=== PATIENT | male | born 1995 | race African-American/Black ===

== ENCOUNTER 2018-08-20 13:56 | Emergency (ER) | payer MEDICAID, OTHER ==
[~2018-08-20] VITALS: Ht 180.3 cm; Wt 71.7 kg
[2018-08-20 14:33] LABS: Urine Bacteria NONE SEEN /hpf (None Seen); Urine Blood Negative /uL (Negative); Urine Mucus FEW (None Seen); Urine Specific Gravity 1.024 (1.001-1.035); Urine WBC 42 /hpf (0 - 3)
[2018-08-20 14:50] LABS: Basophils # (auto) 0 uL; Basophils % (auto) 0.2 % (0.0-2.0); Eosinophils # (auto) 0 uL; Eosinophils % (auto) 1.2 % (0.0-7.0); Hematocrit 43.8 % (41.0-53.0); Hemoglobin 15.5 g/dL (13.5-17.5); Lymphocytes # (auto) 1.6 uL; Mean Corpuscular Hemoglobin 28.9 pg (28.0-32.0); Mean Corpuscular Hgb Conc. 35.3 g/dL (32.0-36.0); Mean Corpuscular Volume 81.8 fL (80.0-100.0); Monocytes # (auto) 0.5 uL; Monocytes % (auto) 12.4 % (0.0-12.0); Neutrophils # (auto) 1.6 uL; Neutrophils % (auto) 43.2 % (37.0-80.0); Nucleated Red Blood Cells % 0.2 %; Platelet Count (auto) 307 10^3/uL (140-450); Red Blood Cells 5.36 10^6/uL (4.5-5.90); Red Cell Distribution Width 13.5 % (11.8-14.3); White Blood Cell 3.8 10^3/uL (4.4-10.8)
[2018-08-20] MEDS ORDERED: PANTOPRAZOLE 40 MG/10 ML VIAL IV STA (15:05)
[2018-08-20] MEDS ORDERED: SODIUM CHLORIDE 0.9% 1,000 ML IVB ONE (15:05)
[2018-08-20 15:08] LABS: Albumin 4.3 g/dL (3.4-5.0); Potassium 4.1 mmol/L (3.5-5.1)
[2018-08-20 15:11] LABS: BUN/Creatinine Ratio 10.3; Bilirubin, Total 0.8 mg/dL (0.2-1.0); Calcium 8.8 mg/dL (8.5-10.1); Total Protein 9.2 g/dL (6.4-8.2)
[2018-08-20] MEDS ORDERED: ONDANSETRON HCL 4 MG/2 ML VIAL IV ONE (15:15)
[2018-08-20 15:43] VITALS: BP 128/72
== END 2018-08-20 17:52 | disposition home or self-care (01) ==
LOC: ER 14:05
DX: N39.0 Urinary tract infection, site not specified (principal); F12.188 Cannabis abuse with other cannabis-induced disorder; R11.10 Vomiting, unspecified; Z21 Asymptomatic human immunodeficiency virus [HIV] infection status
CPT/HCPCS: 36415; 80053; 81001; 83690; 85025; 94761; 96361; 96374; 96375; 99283; C9113; J2405

== ENCOUNTER 2018-09-15 12:38 | Emergency (ER) | payer MEDICAID ==
[~2018-09-15] VITALS: Ht 180.3 cm; Wt 68.0 kg
[2018-09-15] MEDS ORDERED: ASPirin 81 mg TAB PO ONE (13:00)
[2018-09-15 13:31] LABS: Hematocrit 43.3 % (41.0-53.0); Mean Corpuscular Hemoglobin 28.4 pg (28.0-32.0); Mean Corpuscular Hgb Conc. 34.6 g/dL (32.0-36.0); Mean Corpuscular Volume 82.1 fL (80.0-100.0); Platelet Count (auto) 356 10^3/uL (140-450); Red Blood Cells 5.28 10^6/uL (4.5-5.90); Red Cell Distribution Width 13.6 % (11.8-14.3); White Blood Cell 4.3 10^3/uL (4.4-10.8)
[2018-09-15 13:34] LABS: Blast Cells 0; Metamyelocytes % 0; Myelocytes % 0; Promyelocytes % 0; Reactive Lymphocytes 0
[2018-09-15 13:45] LABS: Albumin 4.2 g/dL (3.4-5.0); Anion Gap 5 (5-15); Blood Urea Nitrogen 11 mg/dL (7-18); Calcium 8.8 mg/dL (8.5-10.1); Carbon Dioxide 28 mmol/L (21-32); Chloride 101 mmol/L (98-107); Glucose 93 mg/dL (74-106); Potassium 3.7 mmol/L (3.5-5.1); Sodium 134 mmol/L (136-145)
[2018-09-15 13:51] LABS: Alanine Aminotransferase 25 U/L (16-61); Alkaline Phosphatase 73 U/L (45-117); Aspartate Aminotransferase 19 U/L (15-37); BUN/Creatinine Ratio 9.9; GFR African American 108 mL/min; GFR Non-African American 89 mL/min; Total Protein 9.2 g/dL (6.4-8.2)
[2018-09-15 14:02] LABS: Band Neutrophils % (manual) 1; Lymphocytes % (manual) 38 (10.0-50.0)
[2018-09-15 14:03] LABS: Basophils % (manual) 1 (0.0-2.0); Eosinophils % (manual) 2 (0-7); Monocytes % (manual) 16 (0-12)
[2018-09-15 15:28] VITALS: BP 126/75
== END 2018-09-15 15:41 | disposition home or self-care (01) ==
LOC: EDBD 12:38 → ER 12:38
DX: R07.89 Other chest pain (principal); F12.90 Cannabis use, unspecified, uncomplicated
CPT/HCPCS: 36415; 71045; 80053; 84484; 85007; 85027; 93005; 94761